=== PATIENT | female | born 1935 | race Caucasian/White ===

== ENCOUNTER 2017-02-17 13:49 | Emergency (ER) | payer OTHER ==
[~2017-02-17] VITALS: Ht 165.1 cm; Wt 98.5 kg
[2017-02-17 14:37] LABS: HEMATOCRIT 47.3 % (36.0-46.0); MCH 30.8 PG (29.0-34.0); MCHC 34.5 G/DL (30.0-36.0); MCV 89.2 FL (83-99); MEAN PLAT.VOLUME 10.3 uM^3 (9.5-12.4); PLATELET COUNT 179 K/uL (156-360); RBC DIS.WIDTH-CV 14.5 % (11.8-14.6); WHITE BLOOD COUNT 9.4 K/uL (4.1-10.2)
[2017-02-17 14:44] LABS: CHLORIDE 104 mEq/L (99-109); POTASSIUM 3.8 mEq/L (3.7-5.4); SODIUM 141 mEq/L (136-147)
[2017-02-17 14:47] LABS: GLUCOSE 156 mg/dL (70-99)
[2017-02-17 14:48] LABS: ANION GAP 11 MEQ/L (2-14)
[2017-02-17 14:50] LABS: ALKALINE PHOSPHATASE 169 IU/L (3-129); GFR ESTIMATE (CALCULATED) 51 mL/min/
[2017-02-17 14:51] LABS: UREA NITROGEN (BUN) 16 mg/dL (9-23)
[2017-02-17 15:47] LABS: ADD MIUA? YES; BILIRUBIN NEGATIVE; BLOOD MODERATE; COLOR YELLOW ((YELLOW)); GLUCOSE (STRIP) NEGATIVE; KETONES NEGATIVE; LEUKOCYTES NEGATIVE; NITRITE NEGATIVE; PROTEIN (STRIP) NEGATIVE; SPECIFIC GRAVITY 1.006 (1.000-1.030); UROBILINOGEN 0.2 MG/DL (0.2-1.0)
[2017-02-17 16:02] VITALS: BP 176/79
[2017-02-17 16:05] LABS: BACTERIA NONE SEEN /HPF; EPITHELIAL CELLS RARE /HPF; MUCUS TRACE /LPF; WHITE BLOOD CELLS 0-5 /HPF (0-5)
== END 2017-02-17 16:06 | disposition home or self-care (01) ==
LOC: EME 13:49
PROVIDERS: Physician Assistant
DX: S29.011A Strain of muscle and tendon of front wall of thorax, initial encounter (principal); V43.52XA Car driver injured in collision with other type car in traffic accident, initial encounter; W22.11XA Striking against or struck by driver side automobile airbag, initial encounter; Y92.410 Unspecified street and highway as the place of occurrence of the external cause; Z85.3 Personal history of malignant neoplasm of breast; Z90.11 Acquired absence of right breast and nipple; Z88.5 Allergy status to narcotic agent; Z88.0 Allergy status to penicillin
CPT/HCPCS: 70450; 71020; 72125; 80053; 81003; 85027; 99281; 99284

== ENCOUNTER 2017-03-12 17:47 | Inpatient (IN) | payer OTHER ==
[~2017-03-12] VITALS: Ht 165.1 cm; Wt 94.3 kg
[2017-03-12 21:29] LABS: HEMATOCRIT 46.9 % (36.0-46.0); HEMOGLOBIN 16.1 G/DL (11.9-15.5); MCH 31.6 PG (29.0-34.0); MCHC 34.3 G/DL (30.0-36.0); MCV 92.1 FL (83-99); PLATELET COUNT 154 K/uL (156-360); RBC DIS.WIDTH-CV 17.2 % (11.8-14.6); RBC DIS.WIDTH-SD 55.8 % (39-53); RED BLOOD COUNT 5.09 M/uL (3.80-5.20); WHITE BLOOD COUNT 17.5 K/uL (4.1-10.2)
[2017-03-12 21:38] LABS: ALBUMIN 3.6 g/dL (3.2-4.8)
[2017-03-12 21:39] LABS: CHLORIDE 103 mEq/L (99-109); POTASSIUM 4.2 mEq/L (3.7-5.4); SODIUM 139 mEq/L (136-147)
[2017-03-12 21:41] LABS: GLUCOSE 123 mg/dL (70-99); TOTAL PROTEIN 6.3 g/dL (6.4-8.3)
[2017-03-12 21:43] LABS: TOTAL BILIRUBIN 2.5 mg/dL (0.0-1.0)
[2017-03-12 21:44] LABS: ALKALINE PHOSPHATASE 541 IU/L (3-129)
[2017-03-12 21:45] LABS: CREATININE 1.6 mg/dL (0.6-1.3); GFR ESTIMATE (CALCULATED) 33 mL/min/
[2017-03-12 21:46] LABS: AST (GOT) 668 IU/L (2-34); UREA NITROGEN (BUN) 38 mg/dL (9-23)
[2017-03-12 21:47] LABS: ALT (GPT) 120 IU/L (3-49)
[2017-03-12 21:52] LABS: TROP-I INTERPRETATION NEGATIVE; TROPONIN-I 0.03 ng/mL (0.0-0.30)
[2017-03-12 23:54] LABS: LIPASE 14 U/L (1.0-51.0)
[2017-03-13] MEDS ORDERED: BLOOD PRESSURE PO (00:02)
[2017-03-13] MEDS ORDERED: BIOTIN1000 MICRO PO (00:03)
[2017-03-13] MEDS ORDERED: B-COMPLEX-VITA1 EACH PO (00:03)
[2017-03-13] MEDS ORDERED: ADULT ASPIRIN R81 MG PO (00:03)
[2017-03-13 00:08] LABS: CREATINE KINASE 2427 IU/L (1-294)
[2017-03-13 00:15] LABS: APPEARANCE SL CLOUDY ((CLEAR)); COLOR AMBER ((YELLOW)); GLUCOSE (STRIP) NEGATIVE; LEUKOCYTES SMALL; NITRITE NEGATIVE; PROTEIN (STRIP) 30
[2017-03-13 00:16] LABS: BILIRUBIN MODERATE; BLOOD SMALL; KETONES NEGATIVE
[2017-03-13 00:20] LABS: BACTERIA 3+ /HPF; EPITHELIAL CELLS 1+ /HPF; MUCUS NONE SEEN /LPF; RED BLOOD CELLS 30-40 /HPF (0-5); UCUL ADDED? YES; WHITE BLOOD CELLS 0-5 /HPF (0-5)
[2017-03-13 00:23] LABS: ACETAMINOPHEN (TYLENOL) < 10 mcg/mL (10-30); SALICYLATE < 5.0 MG/DL (15-30)
[2017-03-13 00:25] LABS: ICTOTEST NEGATIVE
[2017-03-13 11:22] LABS: BASOPHIL (%) 0.9 % (0-1); BASOPHIL COUNT 0.1 K/uL (0-0.1); EOSINOPHIL (%) 0.3 % (0-5); HEMATOCRIT 42.2 % (36.0-46.0); IMMATURE GRANULOCYTE (%) 1.9 % (0.0-0.7); LYMPHOCYTE (%) 7.1 % (15-42); LYMPHOCYTE COUNT 0.9 K/uL (1.0-2.8); MCH 31.1 PG (29.0-34.0); MCHC 33.4 G/DL (30.0-36.0); MCV 93.2 FL (83-99); MONOCYTE COUNT 1.3 K/uL (0-0.8); NEUTROPHIL (%) 79.8 % (45-76); NEUTROPHIL COUNT 10.2 K/uL (1.8-6.4); RBC DIS.WIDTH-CV 17.3 % (11.8-14.6); RBC DIS.WIDTH-SD 57.7 % (39-53); RED BLOOD COUNT 4.53 M/uL (3.80-5.20); WHITE BLOOD COUNT 12.7 K/uL (4.1-10.2)
[2017-03-13 11:23] LABS: HEMOGLOBIN 14.1 G/DL (11.9-15.5)
[2017-03-13 11:29] LABS: ALBUMIN 2.9 g/dL (3.2-4.8); CHLORIDE 109 mEq/L (99-109); POTASSIUM 4.4 mEq/L (3.7-5.4); SODIUM 141 mEq/L (136-147)
[2017-03-13 11:30] LABS: MAGNESIUM 2.2 mg/dL (1.3-2.7)
[2017-03-13 11:32] LABS: GLUCOSE 126 mg/dL (70-99)
[2017-03-13 11:33] LABS: TOTAL PROTEIN 5.1 g/dL (6.4-8.3)
[2017-03-13 11:35] LABS: ALKALINE PHOSPHATASE 420 IU/L (3-129); CREATININE 1.2 mg/dL (0.6-1.3); GFR ESTIMATE (CALCULATED) 46 mL/min/; TOTAL BILIRUBIN 1.8 mg/dL (0.0-1.0)
[2017-03-13 11:36] LABS: UREA NITROGEN (BUN) 36 mg/dL (9-23)
[2017-03-13 11:37] LABS: AST (GOT) 468 IU/L (2-34)
[2017-03-13 11:38] LABS: ALT (GPT) 90 IU/L (3-49)
[2017-03-13 11:40] LABS: CREATINE KINASE 1132 IU/L (1-294)
[2017-03-13 12:49] LABS: PLAT.SUFFICIENCY DECREASED; PLATELET COUNT 113 K/uL (156-360)
[2017-03-13 15:45] VITALS: BP 138/68
[2017-03-13 19:37] VITALS: BP 133/62
[2017-03-13 23:59] VITALS: BP 127/69
[2017-03-14 03:26] VITALS: BP 115/58
[2017-03-14 07:10] LABS: INTER. NORMALIZED RATIO 1.1
[2017-03-14 07:11] LABS: BASOPHIL (%) 1.6 % (0-1); BASOPHIL COUNT 0.2 K/uL (0-0.1); EOSINOPHIL (%) 1.8 % (0-5); EOSINOPHIL COUNT 0.2 K/uL (0-0.3); HEMATOCRIT 43.5 % (36.0-46.0); HEMOGLOBIN 14.4 G/DL (11.9-15.5); IMMATURE GRANULOCYTE (%) 2.4 % (0.0-0.7); LYMPHOCYTE (%) 7.4 % (15-42); LYMPHOCYTE COUNT 0.8 K/uL (1.0-2.8); MCH 31.2 PG (29.0-34.0); MCHC 33.1 G/DL (30.0-36.0); MCV 94.4 FL (83-99); MONOCYTE (%) 10.1 % (3-12); MONOCYTE COUNT 1.2 K/uL (0-0.8); NEUTROPHIL (%) 76.7 % (45-76); NEUTROPHIL COUNT 8.7 K/uL (1.8-6.4); PLATELET COUNT 133 K/uL (156-360); RBC DIS.WIDTH-CV 17.7 % (11.8-14.6); RED BLOOD COUNT 4.61 M/uL (3.80-5.20); WHITE BLOOD COUNT 11.4 K/uL (4.1-10.2)
[2017-03-14 07:32] LABS: ALBUMIN 2.8 G/DL (3.2-4.8); ALKALINE PHOSPHATASE 448 IU/L (3-129); ALT (GPT) 74 IU/L (3-49); AST (GOT) 312 IU/L (2-34); CHLORIDE 111 MEQ/L (99-109); CREATININE 0.9 MG/DL (0.6-1.3); DIRECT BILIRUBIN 0.9 mg/dL (0.0-0.3); GFR ESTIMATE (CALCULATED) > 59 mL/min/; GLUCOSE 102 mg/dL (70-99); MAGNESIUM 2.2 mg/dl (1.3-2.7); POTASSIUM 3.9 MEQ/L (3.7-5.4); SODIUM 143 MEQ/L (136-147); TOTAL BILIRUBIN 1.7 MG/DL (0.0-1.0); TOTAL PROTEIN 5.1 G/DL (6.4-8.3); UREA NITROGEN (BUN) 28 mg/dL (9-23)
[2017-03-14 07:55] VITALS: BP 137/63
[2017-03-14 08:30] LABS: CREATINE KINASE 904 IU/L (1-294)
[2017-03-14 15:50] VITALS: BP 141/80
[2017-03-15 00:10] VITALS: BP 144/83
[2017-03-15 07:20] VITALS: BP 140/84
[2017-03-15 07:34] LABS: BASOPHIL (%) 1.4 % (0-1); BASOPHIL COUNT 0.2 K/uL (0-0.1); EOSINOPHIL (%) 0.5 % (0-5); EOSINOPHIL COUNT 0.1 K/uL (0-0.3); HEMATOCRIT 43.4 % (36.0-46.0); HEMOGLOBIN 14.4 G/DL (11.9-15.5); IMMATURE GRANULOCYTE (%) 2.4 % (0.0-0.7); LYMPHOCYTE (%) 6.8 % (15-42); LYMPHOCYTE COUNT 0.9 K/uL (1.0-2.8); MCH 31.3 PG (29.0-34.0); MCHC 33.2 G/DL (30.0-36.0); MCV 94.3 FL (83-99); MONOCYTE (%) 7.9 % (3-12); NEUTROPHIL COUNT 10.4 K/uL (1.8-6.4); PLATELET COUNT 131 K/uL (156-360); RBC DIS.WIDTH-CV 17.8 % (11.8-14.6); RBC DIS.WIDTH-SD 61.2 % (39-53); WHITE BLOOD COUNT 12.9 K/uL (4.1-10.2)
[2017-03-15 08:02] LABS: ALBUMIN 2.9 G/DL (3.2-4.8); ALKALINE PHOSPHATASE 441 IU/L (3-129); ALT (GPT) 76 IU/L (3-49); AST (GOT) 299 IU/L (2-34); CHLORIDE 108 MEQ/L (99-109); CREATINE KINASE 834 IU/L (1-294); CREATININE 0.9 MG/DL (0.6-1.3); GFR ESTIMATE (CALCULATED) > 59 mL/min/; GLUCOSE 100 mg/dL (70-99); MAGNESIUM 2.2 mg/dl (1.3-2.7); POTASSIUM 4.1 MEQ/L (3.7-5.4); SODIUM 143 MEQ/L (136-147); TOTAL BILIRUBIN 1.9 MG/DL (0.0-1.0); TOTAL PROTEIN 5.1 G/DL (6.4-8.3); UREA NITROGEN (BUN) 26 mg/dL (9-23)
[2017-03-15 15:20] VITALS: BP 107/62
[2017-03-15 23:54] VITALS: BP 128/61
[2017-03-16 06:10] LABS: HEMATOCRIT 41.7 % (36.0-46.0); HEMOGLOBIN 13.9 G/DL (11.9-15.5); MCH 31.4 PG (29.0-34.0); MCHC 33.3 G/DL (30.0-36.0); MCV 94.1 FL (83-99); PLATELET COUNT 124 K/uL (156-360); RBC DIS.WIDTH-SD 61.2 % (39-53); RED BLOOD COUNT 4.43 M/uL (3.80-5.20); WHITE BLOOD COUNT 14.4 K/uL (4.1-10.2)
[2017-03-16 06:35] LABS: INTER. NORMALIZED RATIO 1.2
[2017-03-16 06:38] LABS: PTT 30.5 SEC (25-37)
[2017-03-16 06:43] LABS: ALBUMIN 2.8 G/DL (3.2-4.8); ALKALINE PHOSPHATASE 432 IU/L (3-129); ALT (GPT) 82 IU/L (3-49); AST (GOT) 333 IU/L (2-34); DIRECT BILIRUBIN 1.2 mg/dL (0.0-0.3); TOTAL BILIRUBIN 2.2 MG/DL (0.0-1.0); TOTAL PROTEIN 4.8 G/DL (6.4-8.3)
[2017-03-16 07:00] VITALS: BP 138/61
[2017-03-16 09:57] VITALS: BP 145/67
[2017-03-16 10:10] VITALS: BP 136/65
[2017-03-16 10:31] VITALS: BP 146/63
== END 2017-03-16 15:41 | disposition home or self-care (01) | DRG 682 ==
LOC: EME 17:47 → EDOF 03-13 03:46 → 2EAST 03-13 03:46 → ENRESERV 03-13 03:47 → 2EAST 03-13 15:39 → ENPENDDIS 03-16 → 2EAST 03-16 15:41
PROVIDERS: Family Medicine; Internal Medicine Gastroenterology; Physician Assistant
PROC: 0FB23ZX Excision of Left Lobe Liver, Percutaneous Approach, Diagnostic (ICD-10-PCS; principal; 2017-03-16)
DX: N17.9 Acute kidney failure, unspecified (principal); M62.82 Rhabdomyolysis; N39.0 Urinary tract infection, site not specified; B96.20 Unspecified Escherichia coli [E. coli] as the cause of diseases classified elsewhere; C78.7 Secondary malignant neoplasm of liver and intrahepatic bile duct; Z85.3 Personal history of malignant neoplasm of breast; R91.1 Solitary pulmonary nodule; E86.0 Dehydration; I81 Portal vein thrombosis; I10 Essential (primary) hypertension; K75.9 Inflammatory liver disease, unspecified; K74.60 Unspecified cirrhosis of liver; K80.70 Calculus of gallbladder and bile duct without cholecystitis without obstruction; R74.0 Nonspecific elevation of levels of transaminase and lactic acid dehydrogenase [LDH]; R07.9 Chest pain, unspecified; M54.9 Dorsalgia, unspecified; R06.02 Shortness of breath; R31.9 Hematuria, unspecified; Z80.3 Family history of malignant neoplasm of breast; Z17.0 Estrogen receptor positive status [ER+]
CPT/HCPCS: 71045; 71250; 74176; 74183; 76705; 77012; 80048; 80053; 80076; 81003; 82105 90; 82550; 83690; 83735; 83880; 84484; 85025; 85027; 85610; 85730; 87077; 87086; 87186; 88307; 88341 TC; 88342 TC; 93005; 94799; 99281; 99285; G0480; J0696; J1644; J2405; J3010; J7030